=== PATIENT | female | born 1980 | race Caucasian/White ===

== ENCOUNTER 2019-07-14 12:40 | Emergency (ER) | payer BC ==
--- NOTE | 2019-07-14 13:24 | EDM.PDOC ---
ED HPI GENERAL MEDICAL PROBLEM - General Chief Complaint: Respiratory Problem Stated Complaint: SOB, pain with breathing Time Seen by Provider: 07/14/19 13:00 Source of Information: Reports: Patient History Limitations: Reports: No Limitations - History of Present Illness INITIAL COMMENTS - FREE TEXT/NARRATIVE: This patient is a 39 year old female that presents to the ER. Patient reports that on when flying back from [place], she started having chills, mild fever , cough productive. She reports then today she had some mild shortness of breath and burning in lungs with coughing and deep breaths. Onset Date: 07/11/19 Duration: Day(s): (3) Severity: Mild Improves with: Reports: None Worsens with: Reports: None Associated Symptoms: Reports: Cough, cough w sputum, Fever/Chills, Shortness of Breath. Denies: Confusion, Chest Pain, Diaphoresis, Headaches, Loss of Appetite , Malaise, Nausea/Vomiting, Rash, Seizure, Syncope, Weakness Bilateral Upper Chest Pain Score (Numeric/FACES): 5 - Related Data Allergies Allergy/AdvReac Type Severity Reaction Status Date / Time nifedipine [From Procardia] Allergy Severe Cannot Verified 07/14/19 12:48 Remember amoxicillin [From Augmentin] Allergy Rash Verified 07/14/19 12:46 cefuroxime [From Zinacef] Allergy Rash Verified 07/14/19 12:47 clavulanic acid Allergy Rash Verified 07/14/19 12:46 [From Augmentin] Home Meds: Home Meds Azithromycin [Zithromax] 250 mg PO DAILY #4 tab 07/14/19 [Rx] amLODIPine [Norvasc] 2.5 mg PO BEDTIME 07/14/19 [History] methylPREDNISolone [Medrol Dose Pack] 4 mg PO ASDIRECTED #1 dospk 07/14/19 [Rx] Past Medical History Cardiovascular History: Reports: Heart Failure, Hypertension Gastrointestinal History: Reports: GERD, PUD Other [employer] History: Eclampsia Musculoskeletal History: Reports: Fibromyalgia - Past Surgical History HEENT Surgical History: Reports: Tonsillectomy Cardiovascular Surgical History: Reports: None GI Surgical History: Reports: Cholecystectomy Female Surgical History: Reports: Hysterectomy Social & Family History - Family History Family Medical History: Noncontributory - Tobacco Use Smoking Status *Q: Never Smoker Second Hand Smoke Exposure: No - Caffeine Use Caffeine Use: Reports: None - Recreational Drug Use Recreational Drug Use: No ED ROS GENERAL - Review of Systems Review Of Systems: See Below Constitutional: Reports: Fever, Chills HEENT: Reports: Rhinitis Respiratory: Reports: Shortness of Breath, Pleuritic Chest Pain, Cough, Sputum. Denies: Wheezing, Hemoptysis Cardiovascular: Reports: No Symptoms Endocrine: Reports: No Symptoms GI/Abdominal: Reports: No Symptoms : Reports: No Symptoms Musculoskeletal: Reports: No Symptoms Skin: Reports: No Symptoms Neurological: Reports: No Symptoms Psychiatric: Reports: No Symptoms Hematologic/Lymphatic: Reports: No Symptoms Immunologic: Reports: No Symptoms ED EXAM, GENERAL - Physical Exam Exam: See Below Exam Limited By: No Limitations General Appearance: Alert, WD/WN, No Apparent Distress Eye Exam: Bilateral Eye: Normal Inspection, PERRL Ears: Normal External Exam, Normal Canal, Hearing Grossly Normal, Normal TMs Ear Exam: Bilateral Ear: Auricle Normal, Canal Normal, TM normal Nose: Normal Inspection, Normal Mucosa, No Blood Throat/Mouth: Normal Inspection, Normal Lips, Normal Teeth, Normal Gums, Normal Oropharynx, Normal Voice, No Airway Compromise Head: Atraumatic, Normocephalic Neck: Normal Inspection, Supple, Non-Tender, Full Range of Motion Respiratory/Chest: No Respiratory Distress, Lungs Clear, Normal Breath Sounds, No Accessory Muscle Use. No: Respiratory Distress, Decreased Breath Sounds, Crackles, Rales, Rhonchi, Wheezing, Stridor, Splinting Cardiovascular: Normal Peripheral Pulses, Regular Rate, Rhythm, No Edema, No Gallop, No JVD, No Murmur, No Rub Peripheral Pulses: 2+: Radial (L), Radial (R), Posterior Tibial (L), Posterior Tibial (R) Back Exam: Normal Inspection, Full Range of Motion Extremities: Normal Inspection, Normal Range of Motion, Non-Tender, No Pedal Edema, Normal Capillary Refill Neurological: Alert, Oriented Psychiatric: Normal Affect, Normal Mood Skin Exam: Warm, Dry, Intact, Normal Color, No Rash Lymphatic: No Adenopathy Course - Vital Signs Last Recorded V/S: Last Vital Signs Temp 98.7 F 07/14/19 13:04 Pulse 75 07/14/19 13:04 Resp 16 07/14/19 13:04 BP 151/90 H 07/14/19 13:04 Pulse Ox 100 07/14/19 13:04 - Orders/Labs/Meds Orders: Active Orders 24 hr Category Date Time Status Chest 2V [CR] Routine Exams 07/14/19 Taken Meds: Medications Discontinued Medications Generic Name Dose Route Start Last Admin Trade Name Kane PRN Reason Stop Dose Admin Azithromycin 500 mg 07/14/19 13:16 07/14/19 13:37 Zithromax PO 07/14/19 13:17 500 mg ONETIME ONE Administration Prednisone 20 mg 07/14/19 13:17 07/14/19 13:37 Prednisone PO 07/14/19 13:18 20 mg NOW STA Administration Departure - Departure Time of Disposition: 13:21 Disposition: Home, Self-Care 01 Condition: Fair Clinical Impression: Acute bronchitis Qualifiers: Bronchitis organism: unspecified organism Qualified Code(s): J20.9 - Acute bronchitis, unspecified - Discharge Information *PRESCRIPTION DRUG MONITORING PROGRAM REVIEWED*: Not Applicable *COPY OF PRESCRIPTION DRUG MONITORING REPORT IN PATIENT BART: Not Applicable Prescriptions: Azithromycin [Zithromax] 250 mg PO DAILY #4 tab methylPREDNISolone [Medrol Dose Pack] 4 mg PO ASDIRECTED #1 dospk Instructions: Acute Bronchitis, Adult, [id number] Forms: ED Department Discharge Additional Instructions: Followup with your primary care provider Return to the ER for worsening of condition or any emergent concerns Increase fluids Over the counter medications Tylenol or Motrin for fever Medrol Dose Pack as directed #1 no refill (sent to pharmacy) Zithromax as directed (sent to pharmacy) Sepsis Event Note - Evaluation Sepsis Screening Result: No Definite Risk - Focused Exam Vital Signs: Vital Signs Temp Pulse Resp BP Pulse Ox 07/14/19 13:04 98.7 F 75 16 151/90 H 100 Date Exam was Performed: 07/14/19 Time Exam was Performed: 13:38 - My Orders Last 24 Hours: My Active Orders 07/14/19 Chest 2V [CR] Routine - Assessment/Plan Last 24 Hours: My Active Orders 07/14/19 Chest 2V [CR] Routine Plan: PLEASE SEE RN NOTE FOR PFSH
[2019-07-14] MEDS: Azithromycin 250 MG Tab PO ONE (13:37)
[2019-07-14] MEDS: predniSONE 20 MG Tab PO STA (13:37)
== END 2019-07-14 13:40 | disposition home or self-care (01) ==
LOC: CC.ED 12:40
DX: J20.9 Acute bronchitis, unspecified (principal); I10 Essential (primary) hypertension; Z88.1 Allergy status to other antibiotic agents; Z88.8 Allergy status to other drugs, medicaments and biological substances
CPT/HCPCS: 71046; 99284-25; A9270-GY

== ENCOUNTER → 2022-09-02 | Day surgery (SDC) | payer BC ==
[~2022-09-02] MED LIST: Lactated Ringers 1,000 ML IV SCH; Lidocaine 2% 20 ML MDV ONE; Ondansetron 4 MG/2 ML SDV ONE; Propofol 200 MG/20 ML SDV ONE
== END ==
LOC: CC.SDS 08:58
PROVIDERS: ATTEND Family Medicine
DX: R19.4 Change in bowel habit (principal); R19.7 Diarrhea, unspecified; I10 Essential (primary) hypertension; E55.9 Vitamin D deficiency, unspecified; E78.5 Hyperlipidemia, unspecified; M19.90 Unspecified osteoarthritis, unspecified site; Z79.899 Other long term (current) drug therapy; Z88.8 Allergy status to other drugs, medicaments and biological substances; Z88.1 Allergy status to other antibiotic agents; Z88.0 Allergy status to penicillin; Z98.890 Other specified postprocedural states
CPT/HCPCS: J2405; J2704; J3490; J7120

== ENCOUNTER 2022-12-10 15:19 | Emergency (ER) | payer BC | END 2022-12-10 17:29 | disposition home or self-care (01) | LOC: CC.ED 15:19 | DX: S60.211A Contusion of right wrist, initial encounter (principal); I11.0 Hypertensive heart disease with heart failure; I50.9 Heart failure, unspecified; Z88.0 Allergy status to penicillin; Z88.8 Allergy status to other drugs, medicaments and biological substances; W22.8XXA Striking against or struck by other objects, initial encounter | CPT/HCPCS: 73110-RT; 99283 ==